=== PATIENT | male | born 1950 | race African-American/Black ===

== ENCOUNTER → 2017-02-17 | Outpatient (CLI) | payer MEDICARE, OTHER ==
[2016-10-07 15:10] VITALS: BP 113/76
[~2017-02-17] MED LIST: ALBU2.5V14 NEB; ALLO300T PO; CALC-30 PO; CARB15DR3 EACHEYE; CHOL10003 PO; COLC0.6T34 PO; CYCL1DRO EACHEYE; DOCUSATE; FINA5TAB4 PO; INDO25CA PO; LORA10TA3 PO; MEGE400O PO; MELO7.5T29 PO; MIRT30TA3 PO; NAPR500T4 PO; POLY17PO5 PO; PRED-220 PO; PSYL575P4 PO; RANI300C PO; REGADENOSON 0.4 MG/5 ML DISP.SYRIN. IV ONE; SENNA; SILD100T PO; SIME80TA14 PO; TIZA4TAB PO; [UNRECOGNIZED DRUG - CODE] IO
--- NOTE | 2017-02-17 16:31 | RAD ---
APPROVED REPORT Test Type: Pharmacological Stress Nurse/Tech: RT [place] (R) (N) Test Indications: Dyspnea Cardiac History: No known cardiac Resting Heart Rate: 114/68 bpm Resting Blood Pressure: 60mmHg Pretest Chest Pain: No chest pain Pharm. Details Pharmacologic stress testing was performed using 0.4mg per 5ml of regadenoson given intravenously ove r 7-10 seconds. POST EXERCISE Chest Pain: No. Arrhythmia: No. ST Change: No. INTERPRETATION Stress EKG Conclusion: No evidence of stress induced EKG changes. Imaging Protocol IMAGE PROTOCOL: Rest Tc-99m/stress Tc-99m 1 day Rest: Stress: Viability: Radiopharm.Tc99m PvobzuhvmSz46x Sestamibi Auvj99nRe 33mCi Duration 20min. 15min. Img Date 02/17/2017 02/17/2017 Inj-Img [id number]. 45min. Rest Admin Site:IV - Right AntecubitalAdministrator: RT [place] (R)(N) Stress Admin Site: IV - Right AntecubitalAdministrator: RT [place] (R)(N) Viability with Stress The patient was given a Stress Test using Nascentriciscan STRESS DATA End Diast. Vol.87.0mlAv. Heart Rate63.0bpm LVEDV index BSA2.0mlCardiac Output0.1L/min End Syst. Vol.17.0mlCO Index BSA4.4L/min LVESV index BSA0.0mlMyocardial Ivqy563.0g Eject. Wgtbhvek16.0% Stress Rates Pk. Fill Rate3.03EDV/secLVtime Pk. Fill 150.77msec Pk. Empty Rate3.53ESV/secLVtime Pk. Jpzum071.11msec 04/22 Pk. Fill1.97EDV/sec Stress Scores Regional WT0.00Summed WT0.00 Regional WM0.00Summed WM0.00 The rest and stress images show normal perfusion, normal contraction and thickening. LV Perf. Quant 17 Seg. SSS0.00 17 Seg. SRS1.00 17 Seg. SDS0.00 Stress Defect Extent (% LAD)0.00Rest Defect Extent (% LAD)0.00Rev. Defect Extent (% LAD)0.00 Stress Defect Extent (% LCX) 0.00Rest Defect Extent (% LCX)10.00Rev. Defect Extent (% LCX)0.00 Stress Defect Extent (% RCA)0.00Rest Defect Extent (% RCA)0.00Rev. Defect Extent (% RCA)0.00 Stress Defect Extent (% KASSIE)0.00Rest Defect Extent (% KASSIE)4.30Rev. Defect Extent (% KASSIE)0.00 Other Information Quality:Average Risk Assessment: Low Risk Conclusion 1. No evidence of EKG changes with stress testing. 2. Normal perfusion at stress/rest. 3. Low risk study. 4. EF > 60%.
== END | disposition home or self-care (01) ==
LOC: NM 08:37
PROVIDERS: ATTEND Internal Medicine Cardiovascular Disease
DX: R06.09 Other forms of dyspnea (principal); D07.5 Carcinoma in situ of prostate; E11.9 Type 2 diabetes mellitus without complications
CPT/HCPCS: 78452; 93017; 96374; 96375; 96376; A9500; J2785

== ENCOUNTER 2017-10-23 16:35 | Emergency (ER) | payer MEDICARE, OTHER ==
[~2017-10-23] VITALS: Ht 365.8 cm; Wt 68.9 kg
[~2017-10-23 16:35] MED LIST changes: -INDO25CA PO; +INDO25CA5 PO; +NAPR-514 PO; -NAPR500T4 PO; -REGADENOSON 0.4 MG/5 ML DISP.SYRIN. IV ONE
[2017-10-23 16:54] VITALS: BP 118/72
[2017-10-23] MEDS ORDERED: IBUPROFEN 600 MG TABLET. PO ONE (17:30)
--- NOTE | 2017-10-23 17:47 | ED.ADGEN ---
Past History Past Medical History: Arthritis, COPD, Diabetes, Stroke Past Surgical History: Knee Replacement Alcohol Use: None Drug Use: None Adult General Chief Complaint Chief Complaint Right shoulder pain HPI HPI Patient is a 67 year old -[place] male who presents with right shoulder pain. Patient reports pain with palpation, abduction and flexion. No neck pain, tenderness swelling, no right upper extremity motor weakness or loss of sensation.[]Patient's been treated or evaluated at the [facility] times this week for COPD and right shoulder pain. He was last seen this afternoon and checked his right shoulder and provided asling. He states he was given tramadol earlier in the week but has run out. Patient has not been evaluated by primary care physician orthopedic surgeon yet for shoulder pain. He seeking additional pain medication to treat his shoulder pain until he can bee seen in follow up. His chest pain shortness breath, nausea vomiting or any exertional symptoms associated shoulder pain. Review of Systems Review of Systems Review symptoms as per history of present illness. All other review symptoms are negative.[] All other systems were reviewed and found to be within normal limits, except as documented in this note. Current Medications Current Medications Current Medications Medications (Trade) Dose Ordered Sig/Nay Start Time Stop Time Status Last Admin Dose Admin Ibuprofen (Motrin) 600 mg 1X ONCE 10/23/17 17:30 10/23/17 17:34 DC 10/23/17 17:37 600 MG Allergies Allergies Allergies Coded Allergies Type Severity Reaction Last Updated Verified No Known Allergies Allergy Unknown 12/14/15 Yes Physical Exam Physical Exam Constitutional: Well developed, well nourished, no acute distress, non-toxic appearance. [] HENT: Normocephalic, atraumatic, bilateral external ears normal, oropharynx moist, no oral exudates, nose normal. [] Eyes: PERRLA, EOMI, conjunctiva normal, no discharge. [] Neck: Normal range of motion, no tenderness, supple, no stridor. [] Cardiovascular:Heart rate regular rhythm, no murmur [] Extremities: R Shoulder pain, reproduces with palpation, movement and an and extension..[] Neurologic: Upper extremity, no motor weakness or loss of sensation.. [] Psychologic: Affect normal, judgement normal, mood normal. [] Current Patient Data Vital Signs Vital Signs Date Time Temp Pulse Resp B/P (MAP) Pulse Ox O2 Delivery O2 Flow Rate FiO2 10/23/17 16:54 97.9 92 22 95 EKG EKG [] Radiology/Procedures Radiology/Procedures [] Course & Med Decision Making Course & Med Decision Making Pertinent Labs and Imaging studies reviewed. (See chart for details) [Shoulder exam consistent with muscle skeletal pain. [facility] Explained to the patient he cannot have 2 different physicians meant same condition and [facility] and test [facility]. Patient would benefit from outpatient orthopedic referral.] Final Impression Final Impression [] Dragon Disclaimer Dragon Disclaimer This electronic medical record was generated, in whole or in part, using a voice recognition dictation system. SERGIO CASTRO DO Oct 23, 2017 17:47
== END 2017-10-23 17:44 | disposition home or self-care (01) ==
LOC: ER 16:35
DX: M25.511 Pain in right shoulder (principal); M19.90 Unspecified osteoarthritis, unspecified site; J44.9 Chronic obstructive pulmonary disease, unspecified; E11.9 Type 2 diabetes mellitus without complications; Z86.73 Personal history of transient ischemic attack (TIA), and cerebral infarction without residual deficits
CPT/HCPCS: 99282

== ENCOUNTER 2018-10-07 13:12 | Emergency (ER) | payer MEDICARE, OTHER ==
[~2018-10-07] VITALS: Ht 365.8 cm; Wt 68.9 kg
[2018-10-07 13:23] VITALS: BP 124/80
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
[2018-10-07] MEDS ORDERED: DICL50TA4 PO (14:35)
[2018-10-07] MEDS ORDERED: TRAM50TA PO (14:35)
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
== END 2018-10-07 14:47 | disposition home or self-care (01) ==
LOC: ER 13:12
DX: S46.912A Strain of unspecified muscle, fascia and tendon at shoulder and upper arm level, left arm, initial encounter (principal); S80.02XA Contusion of left knee, initial encounter; E11.9 Type 2 diabetes mellitus without complications; Z86.73 Personal history of transient ischemic attack (TIA), and cerebral infarction without residual deficits; Z96.659 Presence of unspecified artificial knee joint; V89.2XXA Person injured in unspecified motor-vehicle accident, traffic, initial encounter; Y93.89 Activity, other specified; Y92.488 Other paved roadways as the place of occurrence of the external cause; Y99.8 Other external cause status
CPT/HCPCS: 73030; 73562; 99284